=== PATIENT | female | born 1985 | race Caucasian/White ===

== ENCOUNTER 2016-08-14 11:56 | Emergency (ER) | payer SELFPAY ==
[2016-08-14 12:05] VITALS: TEMP 98.3; BMI 31.2
[2016-08-14 12:40] LABS: URINE APPEARANCE CLEAR; URINE BILIRUBIN NEGATIVE (NEGATIVE); URINE BLOOD NEGATIVE (NEGATIVE); URINE COLOR LTYELLOW; URINE GLUCOSE (UA) NEGATIVE (NEGATIVE); URINE KETONE NEGATIVE (NEGATIVE); URINE NITRITE NEGATIVE (NEGATIVE); URINE PROTEIN NEGATIVE (NEGATIVE); URINE UROBILINOGEN NEGATIVE E.U./dl (0.2-1.0)
[2016-08-14 12:45] LABS: URINE LEUK ESTERASE 2+ (NEGATIVE)
[2016-08-14 12:46] LABS: URINE BACTERIA RARE /hpf (NONE SEEN); URINE MUCUS RARE; URINE RBC 4 /hpf (0-3); URINE WBC 9 /hpf (3-5)
[2016-08-14] MEDS ORDERED: SODIUM CHLORIDE 1,000 ML IV ONE (12:58)
[2016-08-14] MEDS ORDERED: morphine CARPU-JECT 4 MG/1 ML DISP.SYRIN IVPUSH ONE (12:58)
--- NOTE | 2016-08-14 12:58 | PDOC ---
History of Present Illness - General History Source: Patient Exam Limitations: No Limitations - History of Present Illness Initial Comments: 08/14/16 12:02 The patient is a 30-year-old woman, accompanied by spouse, with no past medical history who presents to the emergency department for via walk-in for further evaluation of abdominal pain. She states that for the past several months she has been experiencing intermittent episodes of non-radiating right lower quadrant pain. Her pain is described as burning sensation. She states that for the past week, her pain has been progressively worsening and today was unbearable with a rated 9/10. She also notes associated symptoms of 1 episode of subjective fever at home, left flank pain and dysuria described as burning sensations. No hematuria. No diarrhea. She has followed up with her rn hemo dialysis, for which an outpatient Pap Smear and US was performed and she reports that her results were within normal limits. She also notes that she had her menses, approximately 2 weeks and a half ago, and notes that it was more heavier than usual She denies nausea, vomiting, hematuria, urinary frequency and urgency, vaginal discharge/vaginal bleeding She denies fever, chills, diaphoresis, generalized weakness. She denies chest pain, shortness of breath. Allergies: No Known Drug Allergies Past Surgical History: Caesarian Section x1. Social History: No tobacco, ETOH and recreational drug use. <Ruthie Adkins - Last Filed: 08/14/16 16:28> <Ty Mora - Last Filed: 08/16/16 20:00> - General Chief Complaint: Pain Stated Complaint: PAIN Time Seen by Provider: 08/14/16 12:12 Past History <Ruthie Adkins - Last Filed: 08/14/16 16:28> - Past Medical History Other medical history: NONE - Reproductive History (#): 1 Para: 0 Therapeutic (s) & number: No Spontaneous : 0 - Psycho/Social/Smoking Cessation Hx Anxiety: No Suicidal Ideation: No Smoking Status: No Smoking History: Never smoked Number of Cigarettes Smoked Daily: 0 Hx Alcohol Use: No Drug/Substance Use Hx: No Substance Use Type: None <Ty Mora - Last Filed: 08/16/16 20:00> - Past Medical History Allergies/Adverse Reactions: Allergies Allergy/AdvReac Type Severity Reaction Status Date / Time No Known Allergies Allergy Verified 08/14/16 12:05 Home Medications: Ambulatory Orders Nitrofurantoin Macrocrystal [Nitrofurantoin] 100 mg PO BID #10 capsule 08/14/16 Review of Systems - Review of Systems Able to Perform ROS?: Yes Comments:: 08/14/16 12:02 CONSTITUTIONAL: No reported: Fever, Chills, Diaphoresis, Generalized Weakness, Malaise, Loss of Appetite HEENT: No reported: Rhinorrhea, Nasal Congestion, Throat Pain, Throat Swelling, Difficulty Swallowing, Mouth Swelling, Ear Pain, Eye Pain, Visual Changes CARDIOVASCULAR: No reported: Chest Pain, Syncope, Palpitations, Irregular Heart Rate, Lightheadedness, Peripheral Edema RESPIRATORY: No reported: Cough, Shortness of Breath, SOB with Exertion, Orthopnea, Wheezing , Stridor, Hemoptysis GASTROINTESTINAL: Rpeorted: Abdominal pain. No reported: Abdominal Distension, Nausea, Vomiting, Diarrhea, Constipation, Melena, Hematochezia GENITOURINARY: Reported: Dysuria.Left flank pain. No reported: Frequency, Urgency, Hesitancy, Genital Pain MUSCULOSKELETAL: No reported: Myalgia, Arthralgia, Joint Swelling, Back pain, Neck Pain SKIN: No reported: Rash, Itching, Pallor HEMEATOLOGIC/IMMUNOLOGIC: No reported: Easy Bleeding, Easy Bruising, Lymphadenopathy, Frequent infections ENDOCRINE: No reported: Unexplained Weight Gain, Unexplained Weight Loss, Heat Intolerance , Cold Intolerance NEUROLOGIC: No reported: Headache, Focal Weakness, Paresthesias, Vertigo, Lightheadedness, Unsteady Gait, Seizure, Mental Status Changes, Incontinence PSYCHIATRIC: No reported: Anxiety, Depression <Ruthie Adkins - Last Filed: 08/14/16 16:28> *Physical Exam - Vital Signs Last Vital Signs Temp Pulse Resp BP Pulse Ox 98.3 F 59 L 20 113/63 99 08/14/16 12:02 08/14/16 12:02 08/14/16 12:02 08/14/16 12:02 08/14/16 12:02 - Physical Exam Comments: 08/14/16 12:02 GENERAL: The patient is awake, alert, and fully oriented, Nontoxic - in no acute distress. HEAD: Normocephalic, atraumatic. EYES: extraocular movements intact, sclera anicteric, conjunctiva clear. ENT: Normal voice, Moist mucous membranes. NECK: Normal range of motion, supple LUNGS: Breath sounds equal, clear to auscultation bilaterally. No wheezes, no rhonchi, no rales. HEART: Regular rate and rhythm, without murmur, rub or gallop. ABDOMEN: Soft, there is right lower quadrant tenderness to palpation, normoactive bowel sounds. No guarding, no rebound.No CVA tenderness EXTREMITIES: Normal range of motion, no edema. No clubbing or cyanosis. No cords, erythema, or tenderness. NEUROLOGICAL: No facial assymetry, Normal speech, PSYCH: Normal mood, normal affect. SKIN: Warm, Dry, normal turgor. <Ruthie Adkins - Last Filed: 08/14/16 16:28> - Vital Signs Last Vital Signs Temp Pulse Resp BP Pulse Ox 98.3 F 59 L 20 113/63 99 08/14/16 12:02 08/14/16 12:02 08/14/16 12:02 08/14/16 12:02 08/14/16 12:02 <Ty Mora - Last Filed: 08/16/16 20:00> ED Treatment Course - LABORATORY CBC & Chemistry Diagram: 08/14/16 13:10 08/14/16 13:10 - ADDITIONAL ORDERS Additional order review: Laboratory Results 08/14/16 12:31 Urine Color Ltyellow Urine Appearance Clear Urine pH 6.0 Ur Specific Amo 1.019 Urine Protein Negative Urine Glucose (UA) Negative Urine Ketones Negative Urine Blood Negative Urine Nitrite Negative Urine Bilirubin Negative Urine Urobilinogen Negative Ur Leukocyte Esterase 2+ H D Urine RBC 4 Urine WBC 9 Ur Epithelial Cells Moderate Urine Bacteria Rare Urine Mucus Rare Urine HCG, Qual Negative - RADIOLOGY Radiograph Interpretation: 08/14/16 15:46 EXAM: CT/ABDOMEN PELVIS CT WITH CONTR IMPRESSION: Multiplanar imaging was performed following the intravenous administration of nonionic contrast. As requested oral contrast was not administered. There is minimal to mild basilar discoid atelectasis. The appendix is partially visualized and demonstrates no discrete abnormality. No indirect CT signs of acute appendicitis are identified. No gross small bowel pathology is seen. There is no evidence of free intraperitoneal fluid or bowel obstruction. A small amount of free fluid is noted within the cul-de-sac and right posterior adnexa. No discrete adnexal cyst is visualized. In comparison to a previous CT exam of 03/02/2009 there is interval placement of an IUD. No obvious malposition is noted. There is possible interval development of diffuse fatty infiltration of the liver. Specificity in this regard is somewhat limited on the basis of contrast-enhanced CT. If clinically indicated correlate with sonography or MRI. The spleen, pancreas, gallbladder, adrenal glands and kidneys demonstrate no discrete abnormality. Interval appearance of a 1.3 cm focus of soft tissue thickening is seen along the ventral superior border of the urinary bladder in association with a punctate calcification. There is no aortic aneurysm. No definite lymphadenopathy is identified. As on the prior study there is moderate colonic fecal retention. - Medications Given in the ED: ED Medications Discontinued Medications Generic Name Dose Route Start Last Admin Trade Name Freq PRN Reason Stop Dose Admin Morphine Sulfate 4 mg 08/14/16 12:58 08/14/16 13:16 Morphine Injection - IVPUSH 08/14/16 12:59 4 mg ONCE ONE Administration <Ruthie Adkins - Last Filed: 08/14/16 16:28> - LABORATORY CBC & Chemistry Diagram: 08/14/16 13:10 08/14/16 13:10 - ADDITIONAL ORDERS Additional order review: Laboratory Results 08/14/16 12:31 Urine Color Ltyellow Urine Appearance Clear Urine pH 6.0 Ur Specific Amo 1.019 Urine Protein Negative Urine Glucose (UA) Negative Urine Ketones Negative Urine Blood Negative Urine Nitrite Negative Urine Bilirubin Negative Urine Urobilinogen Negative Ur Leukocyte Esterase 2+ H D Urine RBC 4 Urine WBC 9 Ur Epithelial Cells Moderate Urine Bacteria Rare Urine Mucus Rare Urine HCG, Qual Negative <Ty Mora - Last Filed: 08/16/16 20:00> Medical Decision Making - Medical Decision Making 08/14/16 12:59 30y F no pmhx presents with RLQ pain worsening x 1 week w/o n/v, +1 episode of fever, + dysuria, but no frequency, hematuria, diarrhea. on exam pt has mild RLQ tenderness. pt does get a similar pain once in a while and had seen [facility] who did an US and told her everything was normal. ?appendycitis - will ck ct, labs will give pain meds, fluids will reassess A portion of this note was documented by scribe services under my direction. I have reviewed the details of the note, within reason, and agree with the documentation with the following case summary and management plan written by me 08/14/16 16:23 labs reviewed ua suggestive of contamnation but as pt ys sypmtomatic will give her course of abx CT reviewed, +stool, also area of thickening and denisty in her bladder - will have pt fu with urology return precautions were discussed I discussed the physical exam findings, ancillary test results and final diagnoses with the patient. I answered all of the patient's questions. The patient was satisfied with the care received and felt comfortable with the discharge plan and treatment plan. The patient will call their primary care physician within 24 hours to arrange follow-up and will return to the Emergency Department with any new, persistent or worsening symptoms. <Ty Mora - Last Filed: 08/16/16 20:00> *DC/Admit/Observation/Transfer - Attestations Scribe Attestion: 08/14/16 12:02 Documentation prepared by Ruthie Adkins, acting as medical csr for Ty Mora MD. <Ruthie Adkins - Last Filed: 08/14/16 16:28> - Discharge Dispostion Admit: No <Ty Mora - Last Filed: 08/16/16 20:00> Diagnosis at time of Disposition: Lower abdominal pain Urinary tract infection Qualifiers: Urinary tract infection type: acute cystitis Hematuria presence: with hematuria Qualified Code(s): N30.01 - Acute cystitis with hematuria - Discharge Dispostion Disposition: HOME Condition at time of disposition: Improved - Prescriptions Prescriptions: Nitrofurantoin Macrocrystal [Nitrofurantoin] 100 mg PO BID #10 capsule - Referrals Referrals: Antonio De La Fuente MD [Staff Physician] - - Patient Instructions Printed Discharge Instructions: DI for Urinary Tract Infection (UTI), DI for Abdominal Pain-Adult Additional Instructions: Vuelva al departamento de urgencias inmediatamente con CUALQUIER nuevo, persistente o empeorando los sntomas incluyendo empeoramiento del dolor abdominal, fiebres, incapacidad de tolerar la ingesta oral, dolor en el pecho, dificultad para respirar o cualquier otra preocupacin. Mantngase syed hidratado. Hubo julian anormalidad con chan TC, por favor, siga con un urlogo para revisar arsh hallazgos. Se proporcion julian copia de chan TC. Debe llamar y hacer el seguimiento con chan mdico en 2-3 blankenship. Chan visita al departamento de emergencias no est completa sin un seguimiento con chan mdico para chan reevaluacin. Por favor, asegrese de que chan mdico revise los resultados de chan evaluacin de emergencia. Return to the emergency department immediately with ANY new, persistent or worsening symptoms including worsening abdominal pain, fevers, inability to tolerate oral intake, chest pain, shortness of breath or any other concerns. Stay well hydrated. There was an abnormality with your CT, please follow up with a urologist to review your findings. A copy of your CT was provided. You MUST call and follow up with your doctor in 2-3 days. Your emergency department visit is not complete without a followup with your doctor for reevaluation. Please make sure your doctor reviews the results of your emergency evaluation. Print Language: SLOVAK
[2016-08-14] MEDS ORDERED: morphine CARPU-JECT 4 MG/1 ML DISP.SYRIN ONE (13:06)
[2016-08-14 13:19] LABS: BASOPHIL 0.4 % (0-2.0); EOSINOPHIL 0.8 % (0-4.5); MCH 29.1 pg (25.7-33.7); MCHC 32.8 g/dl (32.0-36.0); MEAN CELL VOLUME 88.6 fl (80-96); MEAN PLT VOLUME 8.5 fl (7.5-11.1); NEUTROPHILS 60.5 % (42.8-82.8); PLATELET COUNT 248 K/MM3 (134-434); RDW 14.7 % (11.6-15.6); WHITE BLOOD COUNT 4.4 K/mm3 (4.0-10.0)
[2016-08-14 14:11] LABS: ALBUMIN 3.6 g/dl (3.4-5.0); ALK PHOS 114 U/L (45-117); ANION GAP 6 (8-16); BILIRUBIN,TOTAL 0.3 mg/dL (0.2-1.0); CALCIUM 8.5 mg/dL (8.5-10.1); CO2 30 mmol/L (21-32); CREATININE 0.6 mg/dL (0.55-1.02); GLUCOSE,RANDOM 86 mg/dL (74-106); SGOT/AST 15 U/L (15-37); SGPT/ALT 34 U/L (12-78); TOT PROT 7.5 g/dl (6.4-8.2)
[2016-08-14 16:55] VITALS: BP 128/60; PULSE 62
== END 2016-08-14 17:10 | disposition home or self-care (01) ==
LOC: JER 11:56
PROC: 3E0337Z Introduction of Electrolytic and Water Balance Substance into Peripheral Vein, Percutaneous Approach (ICD-10-PCS; principal; 2016-08-14)
PROC: 3E033NZ Introduction of Analgesics, Hypnotics, Sedatives into Peripheral Vein, Percutaneous Approach (ICD-10-PCS; 2016-08-14)
DX: N30.01 Acute cystitis with hematuria (principal)
CPT/HCPCS: 36415; 74177-TC; 80053; 81003; 81015; 84703; 85025; 87086; 99283-25; Q9967